=== PATIENT | male | born 1990 | race African-American/Black ===

== ENCOUNTER 2017-10-27 22:16 | Emergency (ER) | payer OTHER ==
[~2017-10-27] VITALS: Ht 170.2 cm; Wt 95.7 kg
[2017-10-27 22:55] VITALS: Ht 170.2 cm; Wt 95.7 kg
[2017-10-28 00:04] LABS: CALCIUM 9.8 mg/dL (8.5-10.1); CARBON DIOXIDE 29.9 mmol/L (21-32); CHLORIDE SERUM 102 mmol/L (98-107); CREATININE SERUM 1.2 mg/dL (0.7-1.3); GFR1 > 60 mL/min; GLUCOSE SERUM 113 mg/dL (74-106); POTASSIUM SERUM 4.2 mmol/L (3.5-5.1); SODIUM SERUM 135 mmol/L (136-145)
[2017-10-28 00:12] LABS: BASOPHIL % 0.3 % (0-2); PLATELET COUNT 193 x10^3mcL (130-400)
[2017-10-28 00:13] LABS: ALBUMIN 4.2 g/dL (3.4-5.0); ALKALINE PHOSPHATASE 77 U/L (46-116); ALT/SGPT 28 U/L (16-63); AST/SGOT 21 U/L (15-37); BILIRUBIN TOTAL 0.2 mg/dL (0.20-1.00); TOTAL PROTEIN, SERUM 8.1 g/dL (6.4-8.2)
[2017-10-28 01:50] LABS: UA SPECIFIC GRAVITY 1.015 (1.005-1.035); microscopic required? YES; urine erythrocyte 1+ (NEGATIVE)
[2017-10-28 01:58] LABS: AMPHETAMINE QUAL UR POSITIVE (See below)
[2017-10-28 10:55] VITALS: BP 100/72
== END 2017-10-28 10:55 | disposition home or self-care (01) ==
LOC: ED 22:16
PROVIDERS: Emergency Medicine
DX: R45.851 Suicidal ideations (principal); F20.9 Schizophrenia, unspecified; F32.9 Major depressive disorder, single episode, unspecified; F12.90 Cannabis use, unspecified, uncomplicated; F15.921 Other stimulant use, unspecified with intoxication delirium
CPT/HCPCS: 36415; G0480

== ENCOUNTER 2018-04-28 03:33 | Emergency (ER) | payer OTHER ==
[~2018-04-28] VITALS: Ht 170.2 cm; Wt 89.8 kg
[2018-04-28 03:38] VITALS: Ht 170.2 cm; Wt 89.8 kg
[2018-04-28 04:27] LABS: microscopic required? YES; urine erythrocyte 1+ (NEGATIVE)
[2018-04-28 04:28] LABS: BASOPHIL % 0.5 % (0-2); PLATELET COUNT 192 x10^3mcL (130-400); RED CELL DISTRIBUTION WIDTH 14.2 % (11.5-14.5)
[2018-04-28 04:37] LABS: AMPHETAMINE QUAL UR POSITIVE (See below)
[2018-04-28 04:38] LABS: CALCIUM 9.3 mg/dL (8.5-10.1); CARBON DIOXIDE 31.7 mmol/L (21-32); CHLORIDE SERUM 106 mmol/L (98-107); CREATININE SERUM 0.9 mg/dL (0.7-1.3); GFR1 > 60 mL/min; GLUCOSE SERUM 99 mg/dL (74-106); POTASSIUM SERUM 4.2 mmol/L (3.5-5.1); SODIUM SERUM 146 mmol/L (136-145)
[2018-04-28 05:03] LABS: ALBUMIN 3.9 g/dL (3.4-5.0); ALKALINE PHOSPHATASE 70 U/L (46-116); ALT/SGPT 31 U/L (16-63); AST/SGOT 29 U/L (15-37); BILIRUBIN TOTAL 0.16 mg/dL (0.20-1.00); FREE T4 0.95 ng/dL (0.76-1.46); LIPASE 160 IU/L (73-393); TOTAL PROTEIN, SERUM 7.1 g/dL (6.4-8.2)
[2018-04-28 06:51] VITALS: BP 149/91
== END 2018-04-28 08:59 | disposition left against medical advice (07) ==
LOC: ED 03:33
PROVIDERS: Emergency Medicine
DX: F15.159 Other stimulant abuse with stimulant-induced psychotic disorder, unspecified (principal); F32.9 Major depressive disorder, single episode, unspecified; F20.9 Schizophrenia, unspecified
CPT/HCPCS: 36415; 83880; 84439; G0480

== ENCOUNTER 2020-02-23 08:13 | Emergency (ER) | payer SELFPAY ==
[~2020-02-23] VITALS: Ht 170.2 cm; Wt 63.5 kg
[2020-02-23 08:36] VITALS: BP 134/79; Ht 170.2 cm; Wt 63.5 kg
== END 2020-02-23 10:43 | disposition left against medical advice (07) ==
LOC: ED 08:13
DX: Z53.21 Procedure and treatment not carried out due to patient leaving prior to being seen by health care provider (principal)

== ENCOUNTER 2020-02-23 12:46 | Emergency (ER) | payer SELFPAY | END 2020-02-23 17:13 | disposition left against medical advice (07) | LOC: ED 12:46 | DX: Z53.21 Procedure and treatment not carried out due to patient leaving prior to being seen by health care provider (principal) ==

== ENCOUNTER 2020-04-05 21:21 | Emergency (ER) | payer SELFPAY ==
[~2020-04-05] VITALS: Ht 167.6 cm; Wt 79.4 kg
[2020-04-05 21:40] VITALS: Ht 167.6 cm; Wt 79.4 kg
[2020-04-06 00:04] VITALS: BP 131/92
== END 2020-04-06 00:04 | disposition home or self-care (01) ==
LOC: ED 21:21
DX: R53.1 Weakness (principal); Z59.0 Homelessness